=== PATIENT | female | born 1980 | race Caucasian/White ===

== ENCOUNTER 2017-04-07 01:01 | Emergency (ER) | payer BC ==
[~2017-04-07] VITALS: Ht 180.3 cm; Wt 66.2 kg
--- NOTE | ~2017-04-07 | CT4 ---
[facility] A Service of [facility] & [facility] RADIOLOGY TEXT RESULTS PATIENT: SIRENA YIN LOCATION: [facility] : 76 UNIT #: [id number] AGE: [address]: Moises Nassar MD SEX: F ORDER DR: [id number] [facility] [address]. [place], [place] [address] [id number] MR#: [id number] Acc #: [id number] NAME: SIRENA YIN : 1980 SEX: F STUDY DATE/TIME: 04/07/2017 3:26 UNIT: [facility] ROOM: STUDY DESCRIPTION: CT Abd and Pelv Wo Cont Attending Physician: Moises Nassar M.D. Ordering Physician: Moises Nassar M.D. [facility] RE[facility] This report is preliminary unless electronic signature is present EXAM CT abdomen and pelvis without contrast. INDICATIONS Left-sided abdominal pain since yesterday. PROCEDURE Unenhanced CT of the abdomen and pelvis. This CT exam was performed with one or more of the following radiation dose reduction techniques: automatic exposure control, adjustment of mA and/or kV according to patient size, and iterative reconstruction. COMPARISON 08/24/2016 FINDINGS ABDOMEN WITH WITHOUT CONTRAST: Included lung bases clear. Liver enlarged measuring 20.3 cm. The spleen, adrenal glands, pancreas, gallbladder have an unremarkable unenhanced appearance. Bowel loops are nondilated. No radiodense urinary system calculus or hydronephrosis. 1.5 cm upper abdominal midline fat-containing ventral hernia. 4.9 cm fat-containing hernia just to the left of the umbilicus. PELVIS WITHOUT CONTRAST: No radiodense bladder calculus. No pelvic mass or fluid. No aggressive appearing bone lesion. IMPRESSION 1. No acute findings. 2. Hepatomegaly and fat-containing ventral hernias as detailed above. [facility] A Service of [facility] & [facility] RADIOLOGY TEXT RESULTS PATIENT: SIRENA YIN LOCATION: [facility] : 76 UNIT #: [id number] AGE: [address]: Moises Nassar MD SEX: F ORDER DR: Dictated by... Lucas Watson M.D. THIS IS AN ELECTRONICALLY VERIFIED REPORT Lucas Watson M.D. at 04/07/2017 10:02 PM [email or web address]/[email or web address] TD: 04/07/2017 20:59 JOB #: [id number] MEDICAL IMAGING REPORT Page 1 of 1 COPY
[~2017-04-07 01:01] MED LIST: K-DUR20 ME1 PO; MEDI-MECLIZINE25 M1 PO; NO MEDICATIONS
[2017-04-07 02:34] LABS: URINE SOURCE CLEAN CATCH
[2017-04-07 02:38] LABS: URINE APPEARANCE CLEAR; URINE BILIRUBIN NEG (NEG); URINE BLOOD NEG (NEG); URINE COLOR YELLOW; URINE GLUCOSE NEG (NEG); URINE KETONE NEG (NEG); URINE LEUKOCYTE ESTERASE NEG (NEG); URINE NITRATE NEG (NEG); URINE PH 6.5 (5-8); URINE PROTEIN NEG (NEG); URINE SPECIFIC GRAVITY 1.008 (1.003-1.035); URINE UROBILINOGEN 0.2 MG/DL (NEG)
[2017-04-07 02:40] LABS: BASOPHIL# 0.1 X10e3 (0-0.3); BASOPHIL% 0.9 % (0-2.5); DIFF IND NO; EOSINOPHIL# 0.2 X10e3 (0-0.7); EOSINOPHIL% 2.1 % (0.0-7.0); HEMATOCRIT 40.6 % (35.0-45.0); HEMOGLOBIN 13.8 gm/dL (12.0-16.0); LYMPHOCYTE# 2.8 X10e3 (1.0-3.5); LYMPHOCYTE% 36.8 % (17.0-45.0); MEAN CELL VOLUME 95.9 FL (83-96); MEAN CORPUSCULAR HEMOGLOBIN 32.6 PG (28-34); MONOCYTE# 0.5 X10e3 (0-1.0); MONOCYTE% 6.5 % (3.0-12.0); NEUTROPHIL% 53.7 % (40-75); PLATELET COUNT 256 X10e3 (140-420); RED BLOOD COUNT 4.24 X10e (3.90-5.30); WHITE BLOOD COUNT 7.5 X10e3 (4.0-10.5)
[2017-04-07 02:41] LABS: CULTURE INDICATED? NO
[2017-04-07 03:09] LABS: BILIRUBIN,TOTAL 0.1 mg/dL (0.2-2.0); BUN/CREATININE RATIO 16.25; CALCIUM SERUM 8.6 mg/dL (8.4-10.2); CREATININE SERUM 0.8 mg/dL (0.6-1.4); GLOM FILT RATE Estimated 93.6 mL/min (>60); POTASSIUM 3.2 mmol/L (3.5-5.1); PROTEIN TOTAL SERUM 6.4 g/dL (6.0-8.3)
[2017-04-07 03:10] LABS: BILIRUBIN, DIRECT 0.1 mg/dL (0.0-0.2)
== END 2017-04-07 04:20 | disposition home or self-care (01) ==
LOC: CED 01:01
PROVIDERS: Emergency Medicine
DX: R10.9 Unspecified abdominal pain (principal); Z87.442 Personal history of urinary calculi; F17.200 Nicotine dependence, unspecified, uncomplicated
CPT/HCPCS: 36415; 74176; 80048; 80076; 81003; 83690; 84703; 85025; 96361; 96374; 99284; J1885